=== PATIENT | male | born 2000 | race Caucasian/White ===

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

== ENCOUNTER → 2020-08-04 | Outpatient (CLI) | payer MEDICAID ==
--- NOTE | 2020-08-04 16:00 | RADIOLOGY REPORT (SQ) ---
EXAM DESCRIPTION: TOE LEFT IMAGES COMPLETED DATE/TIME: 08/04/2020 3:43 pm REASON FOR STUDY: (M79.675)PAIN IN LEFT TOE(S) M79.675 PAIN IN LEFT TOE(S) COMPARISON: None. NUMBER OF VIEWS: Three views. TECHNIQUE: AP, lateral, and oblique images acquired of the left first toe. LIMITATIONS: None. FINDINGS: MINERALIZATION: Normal. BONES: No acute fracture or dislocation. JOINTS: The normal tarsometatarsal alignment is preserved. SOFT TISSUES: No soft tissue swelling or radiopaque foreign body. OTHER: No other findings. IMPRESSION: No acute osseous abnormality of the left 1st toe. COMMENT: SITE OF TRAUMA/COMPLAINT MARKED/STAMP COMPLETED: NO. TECHNICAL DOCUMENTATION: JOB ID: [id number] [employer]- All Rights Reserved Reading location - IP/workstation name: [email or web address]
== END ==
LOC: RAD 15:22
PROVIDERS: ATTEND Nurse Practitioner Family
DX: M79.675 Pain in left toe(s) (principal)